=== PATIENT | male | born 1975 | race Caucasian/White ===

== ENCOUNTER 2019-04-30 10:34 | Inpatient (IN) ==
[2019-04-30] MEDS ORDERED: ZOFRAN IV PRN (11:24)
[2019-04-30] MEDS ORDERED: D5 1/2 NS 1,000 ML IV SCH (11:45)
[2019-04-30] MEDS: NICODERM PATCH TD SCH (12:08)
[2019-04-30 12:30] LABS: BASO# 0.01 X1000 (0.0-0.2); BASO% 0.1 % (0.0-0.8); HEMATOCRIT 46.4 % (42.0-52.0); HEMOGLOBIN 16.8 g/dL (14.0-18.0); IMM GRAN# 0.01 X1000 (0.0-0.04); IMM GRAN% 0.1 % (0.0-0.5); LYMPH# 0.86 X1000 (1.2-3.4); LYMPH% 9.2 % (20.5-51.1); MCH 29.3 PG (27-31); MCHC 36.2 g/dL (33-37); MONO# 0.79 X1000 (0.11-0.59); MONO% 8.4 % (1.7-9.3); MPV 12.8 FL (7.4-10.4); NEUT# 7.71 X1000 (1.4-6.5); NEUT% 82.2 % (42.2-75.2); PLT 226 X1000 (130-400); RBC 5.73 XMIL (4.7-6.1); RDW 12.5 % (11.5-14.5); WBC 9.38 X1000 (4.8-10.8)
--- NOTE | 2019-04-30 12:37 | EKG Report ---
Test Performed on : 04/30/2019 11:49:55 AM Test Reason : Direct admit-establish baseline Blood Pressure : / mmHG Vent. Rate : 105 BPM Atrial Rate : 105 BPM P-R Int : 120 ms QRS Dur : 070 ms QT Int : 322 ms P-R-T Axes : 075 075 070 degrees QTc Int : 425 ms Sinus tachycardia. Otherwise normal ECG When compared with ECG of 26-SEP-2012 14:47, No significant change was found Unconfirmed Result
[2019-04-30 12:54] LABS: AGAP 18; ALBUMIN 4.9 g/dL (3.5-5.0); ALKALINE PHOSPHATASE 73 U/L (32-122); AMYLASE 17 U/L (20-200); BUN 21 mg/dL (8-22); CALCIUM 9.5 mg/dL (8.8-10.2); CHLORIDE 98 mmol/L (98-107); CK PROFILE 50 U/L (24-204); COSMO 270; CREATININE 0.7 mg/dL (0.7-1.2); ESTIMATED GFR > 60; GLUCOSE 116 mg/dL (70-104); GOT 16 U/L (10-34); GPT 18 U/L (10-44); LIPASE 17 U/L (13-60); POTASSIUM 3.3 mmol/L (3.5-5.1); SODIUM 133 mmol/L (136-145); TCO2 18 mmol/L (25-35); TOTAL PROTEIN 7.6 g/dL (6.3-8.3)
[2019-04-30] MEDS ORDERED: TYLENOL PO PRN (13:27)
--- NOTE | 2019-04-30 14:30 | Diag Imaging Result Doc PS360 ---
EXAM: ABDOMEN FLAT/UPRIGHT HISTORY: Abdominal Pain TECHNIQUE: Four views COMPARISON: 04/28/2018 FINDINGS: No free air beneath the diaphragm. The gallbladder has been removed. Nonspecific bowel gas pattern. No organomegaly. IMPRESSION: No definite abnormality Electronically signed by Napoleon Alvarez 04/30/2019 2:28 PM
[2019-04-30] MEDS ORDERED: MAXALT MLT PO ONE (14:51)
[2019-04-30] MEDS ORDERED: PERCOCET-10 PO PRN (14:52)
[2019-04-30] MEDS ORDERED: PHENERGAN PO ONE (14:52)
[2019-04-30] MEDS: D5 1/2 NS 1,000 ML IV SCH ×2 (14:56→22:18)
--- NOTE | 2019-04-30 16:31 | Diag Imaging Result Doc PS360 ---
EXAM: US ABDOMEN-COMPLETE - 04/30/2019 HISTORY: Intractable Nausea TECHNIQUE: Ultrasound abdomen COMPARISON: None. FINDINGS: There are artifacts from bowel gas and motion which mildly limit detail. The gallbladder surgically absent. The common bile duct is distended at 1 cm, but this can be seen with postcholecystectomy state. There is no stone identified in the visualized portion of the common bile duct, although the distal duct is obscured by artifacts. Visualized portions of the pancreas are unremarkable. There is a 2.6 x 2.2 x 1.4 cm hyperechoic lesion in anterior left lobe of liver. The hyperechoic nature suggests that this likely represents a cavernous hemangioma. The remainder of the liver demonstrates homogeneous echotexture. Doppler image shows hepatopedal flow in the portal vein. The spleen is unremarkable. There is no ascites seen. There are no abnormalities of the bilateral kidneys identified. Abdominal aorta and IVC appear normal caliber. IMPRESSION: Status post cholecystectomy. Distended common bile duct at 1 cm, which may relate to the postcholecystectomy state. 2.6 x 2.2 x 1.4 cm hyperechoic lesion in anterior left lobe of liver, which may be represent cavernous hemangioma. Electronically signed by Ludin Cruz 04/30/2019 4:29 PM
[2019-04-30] MEDS: ZOFRAN IV PRN ×2 (16:42→22:18)
[2019-04-30] MEDS: COGENTIN PO SCH (20:33)
[2019-04-30] MEDS: HALDOL PO SCH (20:33)
[2019-04-30 21:10] VITALS: BP 118/87
--- NOTE | 2019-04-30 22:24 | HISTORY AND PHYSICAL ---
CHIEF COMPLAINT: Nausea, vomiting. HISTORY OF PRESENT ILLNESS: The patient is a 44-year-old male who sees his primary care at [facility] in [place]. Notes he has been nauseated off and on for the past 4 or 5 days. It had continued to worsen. States he has not been able to keep anything down. He has had increased vomiting. Denies any blood in his stool or blood in his emesis. Denies any diarrhea. Does have some abdominal pain. SOCIAL HISTORY: Patient is on disability. His primary care is Inna Jiménez at [facility] in [place]. ALLERGIES: No known drug allergies. MEDICATIONS: Cogentin 0.5 b.i.d., Prozac 20 q.a.m., Haldol 5 b.i.d. and trazodone 50 at bedtime. PAST MEDICAL HISTORY: Significant for migraines, bipolar, history of protein deficiency. PAST SURGICAL HISTORY: None. FAMILY HISTORY: Noncontributory. REVIEW OF SYSTEMS: As noted above. Patient notes that he has had increased nausea, vomiting, abdominal pain, decreased oral intake. States he feels dehydrated. He has not been able to keep anything down. Denies any fevers, chills. He has been having migraines recently. Denies chest pain, palpitations. Denies dysuria, urinary frequency, urgency. Denies constipation, melena, hematochezia. Denies swelling of lower extremities. Denies any skin rashes. PHYSICAL EXAMINATION: VITAL SIGNS: Reviewed. Temperature 98 degrees, pulse 96, respiratory 24, BP 118/84, saturating 98% on room air. GENERAL: Patient is awake, alert. He is in no current respiratory distress, lying flatly in the bed. HEENT: Normocephalic. NECK: Supple. CARDIOVASCULAR: Regular rate. CHEST: Clear. ABDOMEN: Soft. EXTREMITIES: Moves all extremities. NEUROLOGIC: No focal changes. SKIN: Warm, dry. No rashes. ASSESSMENT: 1. Hypokalemia. Potassium is at 2.9. 2. Nausea, vomiting, likely viral gastroenteritis although patient does have a history of marijuana use. He states he has not been using lately. He has been admitted to the hospital in the past with cannabinoid hyperemesis and I certainly expect that it is probably the cause of his current condition at this time as he certainly has the symptoms to correlate with it. PLAN: We are going to continue patient in the hospital. IV fluids, Zofran. We will treat his migraine and we will follow. cc: Philippe Gentile MD
[2019-05-01] MEDS: ZOFRAN IV PRN ×2 (02:10→06:18)
[2019-05-01] MEDS ORDERED: XARELTO PO SCH (06:00)
[2019-05-01] MEDS: D5 1/2 NS 1,000 ML IV SCH (06:21)
[2019-05-01] MEDS ORDERED: PROZAC PO SCH (09:00)
[2019-05-01] MEDS: COGENTIN PO SCH (09:43)
[2019-05-01] MEDS: HALDOL PO SCH (09:43)
[2019-05-01] MEDS: NICODERM PATCH TD SCH (09:53)
--- NOTE | 2019-05-02 15:26 | DISCHARGE SUMMARY ---
ADMISSION DATE: 04/30/2019 DISCHARGE DATE: 05/01/2019 DISCHARGE DIAGNOSES: 1. Nausea and vomiting. Resolved. 2. Abdominal pain. Resolved. 3. Bipolar. 4. Hypokalemia at 3.3. Resolved. 5. History of marijuana use, which is likely contributing, if not causing, current symptoms. CONSULTATIONS: None. PROCEDURES: None. BRIEF HOSPITAL COURSE: Patient is a 44-year-old male who presented to the hospital, treated in the usual fashion, placed on IV fluids, Zofran, and Phenergan. He did have a migraine, was given 1 Percocet as well as Maxalt. Thankfully, this has resolved. On discharge, he is awake, alert, oriented, in no distress. He is able to tolerate a full diet without difficulty. DISPOSITION: Again, discussed with patient the perils of smoking and drinking, as well as smoking marijuana. Discussed continuing his home medications, eating a soft GI diet for the next few days, and increasing as tolerated. TIME SPENT: Greater than 30 minutes was spent in total care. cc: Philippe Gentile MD
== END 2019-05-01 10:35 | disposition home or self-care (01) | DRG 392 ==
LOC: P.DIRADM 10:34 → P.MEDSURG 10:48
PROVIDERS: ATTEND Family Medicine